=== PATIENT | female | born 1995 | race Hispanic/Latino ===

== ENCOUNTER 2018-03-14 09:50 | Emergency (ER) | payer SELFPAY ==
--- NOTE | 2018-03-14 12:09 | EDPHYS ---
Physician Documentation [facility] Name: Bailee Diana Age: 23 yrs Sex: Female : 1995 Arrival Date: 03/14/2018 Time: 09:51 Bed 15 Private MD: None, None ED Physician Allan De La Fuente HPI: 03/14 11:36 This 23 yrs old Female presents to ER via Ambulatory with complaints of cp Abdominal Cramping. 11:37 The patient presents with vaginal discharge, that is malodorous lower abdominal pain. cp 11:37 Onset: The symptoms/episode began/occurred yesterday. cp 11:37 Associated signs and symptoms: Pertinent positives: vaginal discharge, Pertinent cp negatives: constipation, diarrhea, dysuria, fever, vaginal bleeding, vomiting. 11:37 The patient is sexually active. The patient's method of control includes implant. 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 - Social history:: Smoking status: Patient/guardian denies using tobacco. ROS: 11:40 Constitutional: Negative for body aches, chills, fever, poor PO intake. cp 11:40 Eyes: Negative for injury, pain, redness, and discharge. cp 11:40 ENT: Negative for drainage from ear(s), ear pain, sore throat, difficulty swallowing, difficulty handling secretions. 11:40 Cardiovascular: Negative for chest pain, edema, palpitations. 11:40 Respiratory: Negative for cough, shortness of breath, wheezing. 11:40 Abdomen/GI: Positive for abdominal pain, abdominal cramps, Negative for vomiting, diarrhea, constipation, anorexia, black/tarry stool, rectal bleeding. 11:40 Back: Negative for pain at rest, pain with movement. 11:40 : Positive for pelvic pain, vaginal discharge, Negative for urinary symptoms, vaginal bleeding. 11:40 Skin: Negative for cellulitis, rash. 11:40 Neuro: Negative for altered mental status, dizziness, headache, weakness. 11:40 All other systems are negative. Exam: 11:45 Constitutional: The patient appears in no acute distress, alert, awake, non-toxic, well cp developed, well nourished. 11:45 Head/Face: Normocephalic, atraumatic. cp 11:45 Eyes: Periorbital structures: appear normal, Conjunctiva: normal, no exudate, no injection, Sclera: no appreciated abnormality, Lids and lashes: appear normal, bilaterally. 11:45 ENT: External ear(s): are unremarkable, Nose: is normal, Mouth: Lips: moist, Oral mucosa: pink and intact, moist, Posterior pharynx: is normal, airway is patent, no erythema, no exudate, Voice: is normal. 11:45 Chest/axilla: Inspection: normal, Palpation: is normal, no crepitus, no tenderness. 11:45 Cardiovascular: Rate: normal, Rhythm: regular. 11:45 Respiratory: the patient does not display signs of respiratory distress, Respirations: normal, no use of accessory muscles, no retractions, no splinting, no tachypnea, labored breathing, is not present, Breath sounds: are clear throughout, no decreased breath sounds, no stridor, no wheezing. 11:45 Abdomen/GI: Inspection: abdomen appears normal, Bowel sounds: active, all quadrants, Palpation: soft, in all quadrants, mild abdominal tenderness, in the right lower quadrant and left lower quadrant, voluntary guarding, is not appreciated, involuntary guarding, is not appreciated. 11:45 Back: CVA tenderness, is absent. 11:45 Skin: cellulitis, is not appreciated, no rash present. Vital Signs: 10:10 BP 134 / 95; Pulse 90; Resp 17; Temp 97.4; Pulse Ox 99% on R/A; Weight 78.93 kg; Height aj 5 ft. 6 in. (167.64 cm); 10:10 Body Mass Index 28.08 (78.93 kg, 167.64 cm) aj MDM: 11:20 Patient medically screened. cp 12:07 Data reviewed: vital signs, nurses notes. cp 12:07 Refusal of service: The patient/guardian displays adequate decision making capability cp and despite a detailed discussion of alternatives, benefits, risks, and consequences refuses: to wait for results of labs, reevaluation. 03/14 11:39 Order name: Urine Microscopic Only cp 03/14 11:39 Order name: Amylase, Serum cp 03/14 11:39 Order name: Basic Metabolic Panel cp 03/14 11:39 Order name: CBC with Diff cp 03/14 11:39 Order name: Creatinine for Radiology cp 03/14 11:39 Order name: Hepatic Function cp 03/14 11:39 Order name: Urine Dipstick-Ancillary (obtain specimen) cp 03/14 11:39 Order name: Urine Test (obtain specimen) cp 03/14 11:39 Order name: Lipase cp 03/14 11:39 Order name: IV Saline Lock cp 03/14 11:39 Order name: Labs collected and sent cp 03/14 11:39 Order name: Beta hcg cp 03/14 12:04 Order name: Urine Dipstick--Ancillary (enter results) mw2 03/14 12:04 Order name: Urine --Ancillary (enter results) mw2 Administered Medications: No medications were administered Disposition: 19:06 Co-signature as Attending Physician, Allan De La Fuente MD I agree with the assessment and [facility] plan of care. Disposition: 03/14/18 12:09 Patient has left against medical advice. - Patients states they are going to Home. - Condition is Stable. Signatures: Dispatcher [employer] Jazmine Correia RN RN aj Anderson, Corey, MD MD cha Smirch, Shelby, RN RN ss Page, Corey, PA PA cp Corrections: (The following items were deleted from the chart) 03/15 01:03 03/14 19:08 Data reviewed: vital signs, nurses notes, lab test result(s), [facility] cp
--- NOTE | 2018-03-14 12:09 | ER ---
Nurse's Notes [facility] Name: Bailee Diana Age: 23 yrs Sex: Female : 1995 Arrival Date: 03/14/2018 Time: 09:51 Bed 15 Private MD: None, None Diagnosis: Presentation: 03/14 10:08 Presenting complaint: Patient states: Bilateral lower abdominal cramping since aj yesterday. Denies vaginal bleeding. Neg home test. Transition of care: patient was not received from another setting of care. Onset of symptoms was March 13, 2018. Initial Sepsis Screen: Does the patient meet any 2 criteria? No. Patient's initial sepsis screen is negative. Does the patient have a suspected source of infection? No. Patient's initial sepsis screen is negative. Care prior to arrival: None. 10:08 Method Of Arrival: Ambulatory aj 10:08 Acuity: TRAVIS 4 aj Triage Assessment: 10:10 General: Appears in no apparent distress. comfortable, Behavior is calm, cooperative, aj appropriate for age. Pain: Complains of pain in pelvis. Neuro: Level of Consciousness is awake, alert, obeys commands, Oriented to person, place, time, situation. Respiratory: Airway is patent Respiratory effort is even, unlabored, Respiratory pattern is regular, symmetrical. GI: Reports cramping. : Denies vaginal bleeding. Derm: Skin is intact, is healthy with good turgor, Skin is pink, warm \T\ dry. normal. 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 - Social history:: Smoking status: Patient/guardian denies using tobacco. Assessment: 12:07 Reassessment: Pt reports that she is unable to find anyone to pick her nephew up from ss school and she must go pick him up then plans to come back from ER. Pt has no complaints at this time. Is awake, alert. Respirations remains even and unlabored. Patient verbalized understanding risks of leaving AMA. AMA form signed. Vital Signs: 10:10 BP 134 / 95; Pulse 90; Resp 17; Temp 97.4; Pulse Ox 99% on R/A; Weight 78.93 kg; Height aj 5 ft. 6 in. (167.64 cm); 10:10 Body Mass Index 28.08 (78.93 kg, 167.64 cm) ED Course: 09:51 Patient arrived in ED. mr 09:51 None, None is Private Physician. mr 10:09 Triage completed. aj 10:10 Arm band placed on right wrist. Patient placed in waiting room, Patient notified of wait time. 11:18 Eddie Ching, RN is Primary Nurse. [email or web address] 11:19 Allan Rosales PA is PHCP. cp 11:19 Allan De La Fuente MD is Attending Physician. delonte 11:59 Initial lab(s) drawn, by ok, sent to lab. Urine collected: clean catch specimen, clear. [id number] Inserted saline lock: 22 gauge in left antecubital area, using aseptic technique. Blood collected. Administered Medications: No medications were administered Outcome: 12:08 AMA AMA form signed 12:08 Condition: good 12:08 Discharge instructions given to patient, Instructed on follow up and referral plans. 12:09 Patient left the ED. Signatures: Jazmine Dubose, RN Kalpana Elizabeth mr Lucille Ramey RN Allan Paz PA PA cp Martinez, Maria [facility] Eddie Ching RN RN [email or web address]
[2018-03-14 12:23] LABS: Absolute Lymphocytes (CBC) 3.2 K/uL (0.7-4.9); Absolute Monocytes 0.4 K/uL (0.1-1.3); Absolute Neutrophil 6.4 K/uL (1.8-8.0); Basophils % 0.5 % (0-1.3); Eosinophils % 1.2 % (0-4.4); Hematocrit 44.9 % (36.0-45.0); Lymphocytes % 31.5 % (15.3-44.8); MCH 30.1 pg (27.0-35.0); MCV 90.1 fL (80-100); MPV 10.9 fL (7.6-11.3); Monocytes % 4.3 % (3.3-12.3); RBC Red Blood Cell Count 4.99 M/uL (3.86-4.86)
[2018-03-14 12:24] LABS: Bicarbonate 28 mEq/L (21-31); Glucose Level 91 mg/dL (65-120); Lipase 21 U/L (22-51); Potassium 3.9 mEq/L (3.6-5.0); Sodium Level 136 mEq/L (135-145)
[2018-03-14 12:30] LABS: ALT/SGPT 17 IU/L (10-60); AST/SGOT 22 IU/L (10-42); Albumin 4.4 g/dL (3.2-5.5); Alkaline Phosphatase 121 IU/L (42-121); Amylase Level 62 U/L (28-100); BUN Blood Urea Nitrogen 11 mg/dL (6-20); Bilirubin Direct 0.1 mg/dL (0-0.2); Bilirubin Total 0.2 mg/dL (0.3-1.2); Protein, Total 7.9 g/dL (6.0-8.3)
[2018-03-14 12:46] LABS: HCG, Quantitative < 5.0 mIU/mL (<5)
[2018-03-14 13:03] LABS: Urine RBC <5 /HPF (NONE SEEN)
[2018-03-14 13:04] LABS: Urine Bacteria NONE SEEN /HPF (<20); Urine Culture Reflex Order NOT NEEDED
[2018-03-14 14:24] LABS: Urine Blood NEGATIVE (NEG); Urine Glucose NEGATIVE (NEG); Urine Protein NEGATIVE (NEG)
== END 2018-03-14 12:09 | disposition left against medical advice (07) ==
LOC: ER 09:50
DX: R10.30 Lower abdominal pain, unspecified (principal)
CPT/HCPCS: 36415; 80048; 80076; 81003; 81015; 81025; 82150; 83690; 84702; 85025; 99283